=== PATIENT | female | born 1950 | race Two or more races ===

== ENCOUNTER 2017-11-11 13:07 | Emergency (ER) | payer MEDICAID ==
[~2017-11-11] VITALS: Ht 152.4 cm; Wt 45.4 kg
[2017-11-11] MEDS ORDERED: GASTROGRAFIN 30 ML SOL ONE ×2 (13:29→17:38)
[2017-11-11] MEDS ORDERED: MORPHINE SULFATE 4 MG/ML SYR/VIAL ONE (14:44)
[2017-11-11] MEDS ORDERED: HYDROmorphone HCL 2 MG/ML VL IV ONE (14:45)
[2017-11-11] MEDS ORDERED: MORPHINE SULFATE 4 MG/ML SYR/VIAL IV ONE (14:45)
[2017-11-11] MEDS ORDERED: MORPHINE SULFATE 4 MG/ML SYR/VIAL IV PRN ×3 (16:30)
[2017-11-11] MEDS ORDERED: PROMETHAZINE HCL 25 MG/ML 1ML IV PRN (16:30)
[2017-11-11] MEDS ORDERED: FAMOTIDINE (10MG/ML) 2ML VL IV SCH (16:30)
[2017-11-11] MEDS ORDERED: LORazepam 2MG/ML-1ML VIAL IV PRN (16:30)
[2017-11-11] MEDS ORDERED: NITROGLYCERIN 0.4 MG SL TAB SL PRN (16:30)
[2017-11-11 19:21] VITALS: BP 118/59
[2017-11-12] MEDS ORDERED: ENOXAPARIN SOD 40 MG/0.4 ML SYRINGE SC SCH (10:00)
== END 2017-11-11 19:24 | disposition home or self-care (01) ==
LOC: ER 13:07 → EDBD 13:07 → TELE 13:08 → UNDOADMIN 13:08 → ER 19:24
DX: I10 Essential (primary) hypertension (principal); E78.5 Hyperlipidemia, unspecified; Z43.1 Encounter for attention to gastrostomy; Z88.6 Allergy status to analgesic agent
CPT/HCPCS: 43760; 71045; 74018; 74021; 96374; 99291; J2270; Q9963; 93005